=== PATIENT | male | born 1940 | race Caucasian/White ===

== ENCOUNTER 2020-07-19 12:24 | Emergency (ER) | payer MEDICARE, OTHER, SELFPAY ==
[2020-07-19 12:38] VITALS: BP 123/67; PULSE 73; RESP 20; TEMP 36.1; O2SAT 99
--- NOTE | 2020-07-19 13:15 | ED.EAR ---
HPI - Ear Problem General Chief complaint: Ear Stated complaint: ear congestion Source: patient and RN notes reviewed Limitations: no limitations History of Present Illness HPI Narrative: The patient, on several meds, presents with ear discomfort. Patient states he has been seen by ENT for sinus surgery, and had adult bilateral PE tubes in the past. He also comments he [and ] were diagnosed with Covid in mid month in June, and treated supportively with brief hospitilization, oxygen, and til recently- steroids. He complains 1/2-week history of mostly right ear discomfort with bubbling . Symptoms are mild intermittent and unrelieved with [id number] preparations like mucinex. Patient advised to follow-up with ENT if not improved Related Data Home Medications Medication Instructions Recorded Confirmed albuterol sulfate INHALATION 07/19/20 ascorbic acid (vitamin C) 07/19/20 cyclosporine [Restasis] drp 07/19/20 doxycycline hyclate 07/19/20 ergocalciferol (vitamin D2) 07/19/20 [Vitamin D2] flecainide 07/19/20 fluticasone propionate INTRANASAL 07/19/20 levothyroxine 07/19/20 rosuvastatin mg 07/19/20 sertraline mg 07/19/20 tamsulosin mg PO 07/19/20 testosterone cypionate mg 07/19/20 trazodone 07/19/20 Allergies Allergy/AdvReac Type Severity Reaction Status Date / Time iohexol Allergy Hives Verified 07/19/20 12:33 [From contrast - CT, X-RAY] Review of Systems Review of Systems: Narrative: General/Constitutional: No weight loss,fever Eyes: N0: Redness,discharge Ears/Nose/Throat: No: Epistaxis,ear discharge Respiratory: Denies: Hemoptysis Gastrointestinal: No Vomiting, Bleeding-rectal Skin: No Lumps, eruption Neurologic: No Focal Weakness,Sz Hematologic: Denies: Petechiae/Purpura Psychiatric: No: Suicida ideationl All Other Systems: Reviewed and Negative PMFSH Comments At time of signature, agree with nursing past medical, surgical, social and family history. There is no relevant family history pertinent to the presenting complaint Exam Narrative: Exam Narrative: General Appearance: Well appearing, Conjunctiva clear Ears: External ear normal, EACs clear with occasional wax, TMs benign except bilateral, occ scattered air-fluid bubbles Nose: Normal nose Mouth/Throat: Normal appearing, Normal lips Neck: Supple Respiratory: Airway patent, No respiratory distress Cardiovascular: RRR Musculoskeletal: Full strength Skin: Warm, Dry Neurological: A&O x3, Normal affect Course Vital Signs Vital signs: Vital Signs Temperature 97.0 F L 07/19/20 12:38 Pulse Rate 73 07/19/20 12:38 Respiratory Rate 20 07/19/20 12:38 Blood Pressure 123/67 07/19/20 12:38 Pulse Oximetry 99 07/19/20 12:38 Temperature 97.0 F L 07/19/20 12:38 Pulse Rate 73 07/19/20 12:38 Respiratory Rate 20 07/19/20 12:38 Blood Pressure 123/67 07/19/20 12:38 Pulse Oximetry 99 07/19/20 12:38 Medical Decision Making Vital Signs Vital Signs: Vital Signs Temperature 97.0 F L 07/19/20 12:38 Pulse Rate 73 07/19/20 12:38 Respiratory Rate 20 07/19/20 12:38 Blood Pressure 123/67 07/19/20 12:38 Pulse Oximetry 99 07/19/20 12:38 Temperature 97.0 F L 07/19/20 12:38 Pulse Rate 73 07/19/20 12:38 Respiratory Rate 20 07/19/20 12:38 Blood Pressure 123/67 07/19/20 12:38 Pulse Oximetry 99 07/19/20 12:38 Discharge Plan Discharge Clinical Impression: Acute serous otitis media of right ear Qualifiers: Recurrence: non-recurrent Qualified Code(s): H65.01 - Acute serous otitis media, right ear Ceruminosis Qualifiers: Laterality: bilateral Qualified Code(s): H61.23 - Impacted cerumen, bilateral Patient Disposition: Home, Self-Care Condition: Stable Instructions: Serous Otitis Media (ED) Additional Instructions: Continue Flonase, and antihistamines [like Zyrtec, Radha, etc.] You may use peroxide to remove any wax Prescripti
== END 2020-07-19 13:25 | disposition home or self-care (01) ==
PROVIDERS: Emergency Provider Emergency Medicine; PCP Family Medicine
DX: H65.01 Acute serous otitis media, right ear (principal); H61.23 Impacted cerumen, bilateral; Z86.16 Personal history of COVID-19; E78.00 Pure hypercholesterolemia, unspecified; N40.0 Benign prostatic hyperplasia without lower urinary tract symptoms
CPT/HCPCS: 99213; G0463

== ENCOUNTER 2020-10-01 10:03 | Emergency (ER) | payer MEDICARE, OTHER, SELFPAY ==
[2020-10-01 10:21] VITALS: BP 144/72; PULSE 83; RESP 16; TEMP 37.1; O2SAT 99
--- NOTE | 2020-10-01 10:40 | ED.URI ---
HPI - URI/Sore Throat General Chief Complaint: Upper Respiratory Infection Stated Complaint: FEVER/L NASAL CONGESTION/HEADACHE Time Seen by Provider: 10/01/20 10:20 Source: patient Mode of arrival: ambulatory Limitations: no limitations History of Present Illness HPI Narrative: Ron Abdul is a 79 yo male with high cholesterol who came to express care with complaints of sinus pressure and congestion with a low-grade fever that has been going on for 3 days. Patient was hospitalized in June for Covid and was having difficult difficulty with desaturation of his oxygen levels which resulted in 5 days hospitalization and being sent home on oxygen and steroids. Since hospitalization he has received both doses of the Pfizer vaccine, continues to have shortness of breath on exertion when doing activities like cutting the grass, he is to monitor his O2 levels. His tested positive for Covid on 03 July but developed no symptoms. He states he has reactions to both doses of Pfizer vaccine including fever and exhaustion. Is now 11 days out from his second vaccine but in the last 3 days it developed sinus congestion and low-grade fever and fatigue. No he has had the vaccine he is requesting to be rescreened for Covid Related Data Home Medications Medication Instructions Recorded Confirmed ascorbic acid (vitamin C) 500 mg PO DAILY 07/19/20 10/01/20 cyclosporine [Restasis] 1 drp OPHTHALMIC (EYE) BID 07/19/20 10/01/20 ergocalciferol (vitamin D2) 50,000 unit PO WEEKLY 07/19/20 10/01/20 [Vitamin D2] flecainide 75 mg PO DAILY 07/19/20 10/01/20 fluticasone propionate 1 spray INTRANASAL DAILY 07/19/20 10/01/20 levothyroxine 125 mcg PO DAILY 07/19/20 10/01/20 rosuvastatin 5 mg PO DAILY 07/19/20 10/01/20 sertraline 100 mg PO DAILY 07/19/20 10/01/20 tamsulosin 0.4 mg PO BID 07/19/20 10/01/20 testosterone cypionate 100 mg IM MONTHLY 07/19/20 10/01/20 trazodone 50 mg PO HS 07/19/20 10/01/20 Allergies Allergy/AdvReac Type Severity Reaction Status Date / Time iohexol Allergy Hives Verified 10/01/20 10:11 [From contrast - CT, X-RAY] Review of Systems Review of Systems: Narrative: CONSTITUTIONAL: Denies fever, chills, sweats. EYES: Denies visual changes, redness, discharge. ENT: Denies rhinorrhea, sinus and nasal congestion, minimal sore throat, right ear popping CARDIOVASCULAR: Denies chest pain, palpitations, edema. RESPIRATORY: Denies dyspnea, wheezing, cough GASTROINTESTINAL: Denies abdominal pain, nausea, vomiting, diarrhea. GENITOURINARY: Denies dysuria, hematuria, abnormal discharge SKIN: Denies rash or itching. NEUROLOGIC: Denies numbness, or focal weakness. PSYCHIATRIC: Denies anxiety or depression. [facility] Past Medical History Medical History BPH (benign prostatic hyperplasia) High cholesterol Hypothyroid Seasonal allergies Family History Family History Other Heart disease Social History Social History (Updated 10/01/20 @ 10:45 by Danyell Gandhi CNP) Smoking status: Never smoker Alcohol intake: current Comments At time of signature, I agree with nursing past medical, surgical, social and family history. There is no relevant family history pertinent to the presenting complaint. Patient is hypertensive at the visit although he does not have a diagnosis of hypertension he has had Covid and has an echocardiogram scheduled with his primary care physician next week Exam Narrative: Exam Narrative: GENERAL: This is a well-nourished, well-developed patient, in mild distress. HEAD: normocephalic, atraumatic. EYES: Sclera clear/white. Vision is grossly intact. EARS: External ears normal, auditory canals clear and without drainage, TMs normal without perforation. Hearing grossly intact. NOSE: External nose normal without nasal discharge, nares with redness, has rhinorrhea. Obstructed airflow on t
== END 2020-10-01 10:39 | disposition home or self-care (01) ==
PROVIDERS: Emergency Provider Nurse Practitioner; PCP Family Medicine
DX: J01.00 Acute maxillary sinusitis, unspecified (principal); Z20.822 Contact with and (suspected) exposure to COVID-19; N40.0 Benign prostatic hyperplasia without lower urinary tract symptoms; E78.00 Pure hypercholesterolemia, unspecified; E03.9 Hypothyroidism, unspecified
CPT/HCPCS: 87426; 99213; C9803; G0463

== ENCOUNTER 2021-08-11 14:39 | Emergency (ER) | payer MEDICARE, OTHER, SELFPAY ==
--- NOTE | 2021-08-11 14:43 | ED.SKABFB ---
HPI - Skin/Abscess/Foreign Bdy General Chief complaint: Skin/Abscess/Foreign Body Stated complaint: insect bite Time Seen by Provider: 08/11/21 14:46 Source: patient and RN notes reviewed Mode of arrival: ambulatory Limitations: no limitations History of Present Illness HPI narrative: 80-year-old male presents with concern for red dots on his leg. He reports from 1 week he has had 2 raised red spots with central scabs to the left upper thigh. Reports they itch. He denies pain. He denies drainage. He denies fever, body aches, chills, sweats. He denies intervention. MD complaint: abscess/boil Related Data Home Medications Medication Instructions Recorded Confirmed ascorbic acid (vitamin C) 500 mg PO DAILY 07/19/20 10/01/20 cyclosporine [Restasis] 1 drp OPHTHALMIC (EYE) BID 07/19/20 10/01/20 ergocalciferol (vitamin D2) 50,000 unit PO WEEKLY 07/19/20 10/01/20 [Vitamin D2] flecainide 75 mg PO DAILY 07/19/20 10/01/20 fluticasone propionate 1 spray INTRANASAL DAILY 07/19/20 10/01/20 levothyroxine 125 mcg PO DAILY 07/19/20 10/01/20 rosuvastatin 5 mg PO DAILY 07/19/20 10/01/20 sertraline 100 mg PO DAILY 07/19/20 10/01/20 tamsulosin 0.4 mg PO BID 07/19/20 10/01/20 testosterone cypionate 100 mg IM MONTHLY 07/19/20 10/01/20 trazodone 50 mg PO HS 07/19/20 10/01/20 Allergies Allergy/AdvReac Type Severity Reaction Status Date / Time iohexol Allergy Hives Verified 10/01/20 10:11 [From contrast - CT, X-RAY] Review of Systems Review of Systems: CONSTITUTIONAL: Denies malaise, chills, sweats, or fever. EYES: Denies redness, or discharge. ENT: Denies rhinorrhea, congestion, swollen lips, swollen tongue CARDIOVASCULAR: Denies chest pain, palpitations, or edema. RESPIRATORY: Denies cough or dyspnea. GASTROINTESTINAL: Denies abdominal pain, nausea, vomiting SKIN: Reports to red raised itchy areas in the left thigh MUSCULOSKELETAL: Denies joint painor myalgia. NEUROLOGIC: Denies headache. All systems reviewed & are unremarkable except as noted in HPI and below PMFSH Past Medical History Medical History BPH (benign prostatic hyperplasia) High cholesterol Hypothyroid Seasonal allergies Family History Family History Other Heart disease Social History Social History (Updated 10/01/20 @ 10:45 by Danyell Gandhi CNP) Smoking status: Never smoker Alcohol intake: current Comments At time of signature, agree with nursing past medical, surgical, social and family history. There is no relevant family history pertinent to the presenting complaint Exam Narrative: GENERAL: Well-appearing, well-nourished, and in no acute distress. HEAD: Normocephalic, atraumatic. EYES: PERRLA, conjunctivae clear ENT: Mucous membranes moist. NECK: Supple. No lymphadenopathy CHEST: Clear to auscultation. No respiratory distress. HEART: Regular rate and rhythm. SKIN: Warm, dry. 2 confluent erythematous scabbed papules less than 0.5 cm in diameter each noted to the left thigh without surrounding erythema, edema, induration. No drainage noted. No tenderness noted. NEURO: Alert and oriented x3. PSYCH: Normal mood and affect Course Course Emergency Course: Patient is aware of diagnosis, understands and agrees to treatment plan. Anticipatory guidance given. Patient agrees to follow-up as directed and is aware of reasons to seek care at the emergency department. Portions of this record may have been created with voice recognition software Level of Care: Express Care Visit Vital Signs Vital signs: Reviewed. MDM - Skin/Abscess/Foreign Bdy MDM Narrative Medical decision making narrative: Exam findings show no acute concerns or changes; patient is non-toxic appearing and is in no distress. Patient is appropriate for outpatient treatment and follow-up. Differential Diagnosis Differential diagnosis: Likely abscess of skin or subcu
[2021-08-11 14:45] VITALS: BP 117/66; PULSE 89; RESP 16; TEMP 36.6; O2SAT 99
== END 2021-08-11 14:57 | disposition home or self-care (01) ==
PROVIDERS: Emergency Provider Nurse Practitioner; PCP Family Medicine
DX: L73.9 Follicular disorder, unspecified (principal); N40.0 Benign prostatic hyperplasia without lower urinary tract symptoms; E78.00 Pure hypercholesterolemia, unspecified; E03.9 Hypothyroidism, unspecified
CPT/HCPCS: 99211; G0463